=== PATIENT | male | born 1990 | race Two or more races ===

== ENCOUNTER 2021-08-28 00:46 | Emergency (ER) | payer OTHER ==
[~2021-08-28] VITALS: Ht 170.2 cm; Wt 65.8 kg
[2021-08-28] MEDS ORDERED: KETO10TA2 PO (02:42)
== END 2021-08-28 02:49 ==
LOC: ER 00:46
DX: M94.0 Chondrocostal junction syndrome [Tietze] (principal)

== ENCOUNTER 2022-05-13 13:16 | Outpatient (CLI) | payer OTHER ==
[~2022-05-13 13:16] MED LIST: KETO10TA2 PO
== END 2022-05-13 13:17 | disposition home or self-care (01) ==
LOC: LAB 13:16
PROVIDERS: ATTEND Obstetrics & Gynecology
DX: Z20.818 Contact with and (suspected) exposure to other bacterial communicable diseases (principal); Z20.828 Contact with and (suspected) exposure to other viral communicable diseases